=== PATIENT | female | born 1980 | race Hispanic/Latino ===

== ENCOUNTER 2024-07-01 18:00 | Emergency (ER) | payer BC ==
[~2024-07-01] VITALS: Ht 162.6 cm; Wt 64.4 kg
[2024-07-01 18:18] VITALS: BP 125/52; PULSE 72; RESP 16; TEMP 98.1; O2SAT 98
--- NOTE | 2024-07-01 20:17 | ERN ---
ED Note History of Present Illness Stated Complaint: F/O STUCK IN THROAT Chief Complaint: Swallowed Foreign Body Time Seen by MD: 18:03 Time Seen by Midlevel: 18:03 Dictation: The patient is a 44-year-old female with a history of breast augmentation who presents to the emergency department with complaints of sensation of something on throat. Patient reports she was eating some jalapeno peppers and thinks one of the stem was the one that got stuck in her throat. Otherwise denies any nausea, vomiting, shortness of breath. Allergies: Coded Allergies: No Known Allergies (Unverified Allergy, Unknown, 07/01/24) Past Medical History Past Medical History: No Pertinent History Surgical History: Other Surgical History Other: BREAT AUGMENTATION LMP: Jun 11, 2024 RN Note Reviewed/Agreed w/PFSH: Yes Review of System Dictation Constitutional: Negative for fever,chills, and weight loss Eyes: Negative for injury, pain,redness, and discharge ENT: Negative for injury,pain or swelling positive for throat pain Cardiovascular: Negative for chest pain, palpitations, and edema Respiratory: Negative for shortness of breath, cough, and wheezing, Abdomen/GI: Negative for abdominal pain, nausea, vomiting, diarrhea, and constipation Back: Negative for injury and pain : Negative for injury, bleeding and discharge MS/Extremity: Negative for injury and deformity Skin: Negative for rash, and discoloration Neuro: Negative for headache, weakness, numbness, tingling, and seizure Psych: Negative for suicide ideation, homicidal ideation, and hallucinations Initial Vital Sign VS Vital Signs Date Time Temp Pulse Resp B/P (MAP) Pulse Ox O2 Delivery O2 Flow Rate FiO2 07/01/24 18:05 98.1 75 20 127/46 98 Room Air 0 07/01/24 18:18 21 Physical Exam Dictation Vital Signs reviewed General Appearance: Alert, oriented x 3, no acute distress, well developed, nourished. Head and Face: non-traumatic. Eyes: PERRL, pink conjunctivas, eyelid no trauma, anterior chamber with arcus senilis. Ears: Pinnas intact and no signs of trauma or erythema ear canals clear and no discharge TM no erythema Nose: No discharge, no bleeding. Oropharynx: Mouth normal, tongue pink. pharynx clear,no erythema, tonsils no exudates, no abscesses noted, mucous membrane moist Neck: Supple, non-tender, no thyromegaly, no masses, no JVD, no bruits Breast:Deferred Chest:No tenderness, no crepitus, no paradoxical movement, no retractions Lungs:Clear, well-ventilated, symmetric, no rales, no wheezing, no rhonchi, no stridor, good breath sounds bilaterally Heart: Regular rate, regular rhythm, no murmur, no gallops Vascular: no peripheral edema, Abdomen: Soft, positive bowel sounds, nondistended, no guarding, nontender, no rebound, no masses no hepatomegaly, no splenomegaly, no Cobb's sign, no hernias. Rectal: Deferred Genital: Deferred Neurological: Normal speech, motor function intact, sensory function intact Musculoskeletal: Neck nontender, full range of motion, back nontender, full range of motion, Extremities: nontender, full range of motion Skin: Color pink, dry, no turgor, no rash, no lacerations, no abrasions, no contusions. Lymphatic: Deferred Results (Laboratory/Radiology) Labs Reviewed?: Yes ED Course ED Course Orders Procedure Category Date Status Time Neck Soft Tissue RAD 07/01/24 Taken 18:18 ,Urine Test LAB 07/01/24 Logged 18:18 Vital Signs Date Time Temp Pulse Resp B/P (MAP) Pulse Ox O2 Delivery O2 Flow Rate FiO2 07/01/24 18:18 98.1 72 16 125/52 98 Room Air* 0 21 07/01/24 18:05 98.1 75 20 127/46 98 Room Air 0 Medical Decision Making MDM The patient is a 44-year-old female with a history of breast augmentation who presents to the emergency department with complaints of sensation of something on throat. Patient reports she was eating some jalapeno peppers and thinks one of the stem was the one that got stuck in her throat. Otherwise denies any nausea, vomiting, shortness of breath. No obvious foreign body seen on x-ray. Patient no acute distress, non labored respiration we will be discharged to follow up with PCP. Differential diagnosis: Foreign body, gastritis, throat irritation Need for hospitalization: Patient does not meet criteria for hospitalization. There are no social concerns with this patient. DX & DISP Disposition: Discharge Departure Impression: Primary Impression: Sensation of foreign body in throat Additional Impression: Throat irritation Condition: Stable Additional Instructions: Please follow up with your primary doctor in 1-2 days. If symptoms worsen please return to ER. FOLLOW-UP WITH PRIMARY CARE PROVIDER IN 1 TO 2 DAYS. TAKE MEDICATIONS DIRECTED HERE IN THE EMERGENCY ROOM. OKAY TO CONTINUE HOME MEDICATIONS UNLESS OTHERWISE DISCUSSED DURING YOUR VISIT IN THE EMERGENCY ROOM TODAY. RETURN TO YOUR NEAREST EMERGENCY ROOM IF SYMPTOMS WORSEN OR IF THERE IS NO IMPROVEMENT. CALL 911 IF YOU NEED IMMEDIATE ASSISTANCE. TAKE TYLENOL OR MOTRIN [id number] NEEDED AND IF NO CONTRAINDICATIONS ARE PRESENT. INCREASE ORAL HYDRATION. A WOUND CULTURE OR URINE CULTURE WAS ORDERED HERE IN THE EMERGENCY ROOM DEPARTMENT PLEASE FOLLOW-UP WITH PRIMARY CARE PROVIDER AND ADVISE THEM TO GET REPEAT PORTS FROM OUR FACILITY. IF YOU HAD ANY WAQAS WRAP/SPLINTS THAT WERE APPLIED HERE, PLEASE DO NOT REMOVE THEM UNTIL YOU SEE YOUR PRIMARY CARE OR SPECIALTY. Referrals: JUSTIN GOMEZ (PCP) Time of Disposition: 20:16 I have reviewed the case, and I agree with, Diagnosis and Plan DARLYN BUSTAMANTE Jul 01, 2024 20:17
--- NOTE | 2024-07-01 22:05 | HMCIMG ---
NECK SOFT TISSUE REASON: r/o foreign body. COMPARISON: None TECHNIQUE: 2 images of soft tissue neck were obtained. FINDINGS: There is cartilage calcifications noted near C4-5 level. Evaluation for foreign body is limited in this area and clinical correlation is recommended. There are degenerative changes of cervical spine. Anterior subluxation is seen of C4 over C5. IMPRESSION: Findings as described above.
== END 2024-07-01 20:22 | disposition home or self-care (01) ==
LOC: EDH 18:00
DX: R09.A2 Foreign body sensation, throat (principal); J02.9 Acute pharyngitis, unspecified
CPT/HCPCS: 70360; 99283